=== PATIENT | female | born 1960 | race African-American/Black ===

== ENCOUNTER 2017-11-15 21:52 | Emergency (ER) | payer MEDICARE, OTHER ==
[~2017-11-15 21:52] MED LIST: ALBU6.7H INH; AMLO10TA2 PO; ATOR10TA15 PO; B12; BD P32MI; BIOM30MI; FLUC150T PO; FURO20TA PO; GLUCKIT15; GLUCTES12; INSU1MIS15; LANCETS1 MI1; LANTINJ SQ; LEVO200T4 PO; LEVO50TA4 PO; LISI-515 PO; METF500T PO; METO25TA3 PO; NOVOLOGP2 SQ; PREG300 PO; TRAM50TA PO
[2017-11-15 21:55] VITALS: BP 195/86; PULSE 101; RESP 16; TEMP 98.6; O2SAT 96
[2017-11-15] MEDS ORDERED: SODIUM CHLORIDE 0.9% FLUSH 10 ML FLUSH IVF PRN (22:15)
[2017-11-15] MEDS ORDERED: methylPREDNISolone SOD SUCC 125 MG/2 ML VIAL IV PUSH ONE (22:15)
[2017-11-15 22:16] VITALS: BP 163/93; PULSE 95; RESP 22; O2SAT 98
[2017-11-15 22:18] VITALS: O2SAT 98
--- NOTE | 2017-11-15 22:21 | PD ---
HPI Chief Complaint: Respiratory Symptoms Time Seen by Provider: 22:09 Travel History International Travel<30 days: No Contact w/Intl Traveler<30days: No Traveled to known affect area: No History of Present Illness HPI 57-year-old female with PMH of DM T2, CKD, HTN, morbid obesity presents to the ED for evaluation with 3 day history of cough. States the cough is productive of yellow-green phlegm. She endorses fever of 102 degrees 2 days ago. States that the cough is accompanied by chest tightness, 5/10 central pain is worsened with cough. She endorses intermittent sinus congestion and rhinorrhea. She endorses chronic edema of the lower extremities, no worse today. She denies sore throat, headaches, shortness of breath, abdominal pain, nausea, vomiting, dysuria. She states that she received this years flu vaccine. She is followed by the residents. PFSH Past Medical History Hx Anticoagulant Therapy: No Arthritis: Yes Asthma: Yes Blood Disorders: No Heart Rhythm Problems: No Cancer: No Cardiac Catheterization: Yes Cardiovascular Problems: Yes (HTN, CHF) High Cholesterol: Yes Chemotherapy: No Chest Pain: Yes Congestive Heart Failure: Yes COPD: No Cerebrovascular Accident: No Diabetes: Yes Endocrine: Yes (HYPOTHYROID) Genitourinary: No Hypertension: Yes Immune Disorder: No Musculoskeletal: Yes (OPEN REDUCTION ON L ANKLE) Neurologic: No Psychiatric: No Respiratory: Yes (ASTHMA) Myocardial Infarction: No Radiation Therapy: No Sleep Apnea: No Thyroid Disease: Yes (HYPERTHYROID) Menopausal: Yes : 3 Para: 4 Past Surgical History Abdominal Surgery: Yes (HERNIA) AICD: No Body Medical Devices: VIT D DEF. Cardiac Surgery: Yes (PERICARDIAL WALL OPEN) Section: Yes Coronary Artery Bypass Graft: No Ear Surgery: No Endocrine Surgery: No Eye Surgery: No Genitourinary Surgery: No Gynecologic Surgery: Yes () Hysterectomy: No Joint Replacement: No Oral Surgery: No Pacemaker: No Thoracic Surgery: No Other Surgery: Yes Social History Alcohol Use: No Tobacco Use: No Substance Use: No Allergies-Medications (Allergen,Severity, Reaction): Coded Allergies: acetaminophen (Unverified Allergy, Severe, NAUSEA AND VOMITING, 11/15/17) aspirin (Unverified Allergy, Severe, 11/15/17) diclofenac (Unverified Allergy, Severe, GI UPSET, 11/15/17) etodolac (Unverified Allergy, Severe, GI UPSET, 11/15/17) flurbiprofen (Unverified Allergy, Severe, GI UPSET, 11/15/17) hydrocodone (Unverified Allergy, Severe, NAUSEA AND VOMITING, 11/15/17) ibuprofen (Unverified Allergy, Severe, GI UPSET, 11/15/17) indomethacin (Unverified Allergy, Severe, GI UPSET, 11/15/17) ketoprofen (Unverified Allergy, Severe, GI UPSET, 11/15/17) ketorolac (Unverified Allergy, Severe, GI UPSET, 11/15/17) naproxen (Unverified Allergy, Severe, GI UPSET, 11/15/17) oxaprozin (Unverified Allergy, Severe, GI UPSET, 11/15/17) penicillin G (Unverified Allergy, Severe, 11/15/17) promethazine (Unverified Allergy, Mild, 11/15/17) gabapentin (Unverified Adverse Reaction, Severe, Abdominal pain, 11/15/17) Reported Meds & Prescriptions Reported Meds & Active Scripts Active Metoprolol Tartrate 25 Mg Tab 25 Mg PO BID Levothyroxine (Levothyroxine Sodium) 200 Mcg Tab 200 Mcg PO DAILY Levothyroxine (Levothyroxine Sodium) 50 Mcg Tab 50 Mcg PO DAILY Metformin (Metformin HCl) 500 Mg Tab 500 Mg PO BIDPC Bd Pen Needle/Naila/Ultra 32G X 4 mm (Insulin Pen Needle) 32 Gauge X 5/32" Mis Syringe Use pens for insulin administration up to 5 times per day, as needed for blood sugar control. Novolog Inj (Insulin Aspart) 1,000 Unit/10 Ml Vial 1-9 Units SQ ACHS Take as prescribed. Sharpsafety Sharps Contai (Parenteral Therapy Supplies) 1 Mis Mis Ea .ROUTE DIRECTED Glucocom Test Strips (Blood Glucose Test Strips) 1 Deanna Deanna Ea .ROUTE DIRECTED Lancets 1 Mis Mis Ea .ROUTE DIRECTED Insulin Syringe/U-100/31G X 5/16" 1 ml 31 Gauge X 5/16" Mis Ea .ROUTE DIRECTED Glucocom Blood Glucose Mo W/Device (Device) 1 Kit Kit Kit .ROUTE DIRECTED Fluconazole 150 Mg Tab 150 Mg PO ONCE Atorvastatin (Atorvastatin Calcium) 10 Mg Tab 10 Mg PO HS Lisinopril 20 Mg Tab 20 Mg PO DAILY Take 20mg daily Amlodipine (Amlodipine Besylate) 10 Mg Tab 10 Mg PO DAILY Lantus Solostar Pen Inj (Insulin Glargine) 300 Unit/3 Ml Pen 48 Units SQ HS Take 48 units nightly. Furosemide 20 Mg Tab 40 Mg PO DAILY Take two tabs daily. Lyrica (Pregabalin) 300 Mg Cap 300 Mg PO DAILY Reported [B12] Unknown Strength Unknown Dose Proventil Hfa 6.7 GM Inh (Albuterol Sulfate) 90 Mcg/Act Aer 1 Puff INH Q4H PRN Tramadol (Tramadol HCl) 50 Mg Tab 50 Mg PO Q8H PRN Review of Systems Except as stated in HPI: all other systems reviewed are Neg Physical Exam Narrative GENERAL: Morbidly obese, smells strongly of urine, female in no acute distress. SKIN: Focused skin assessment warm/dry. HEAD: Normocephalic. EYES: No scleral icterus. No injection or drainage. NECK: Supple, trachea midline. No JVD or lymphadenopathy. CARDIOVASCULAR: Regular rate and rhythm without murmurs, gallops, or rubs. RESPIRATORY: Breath sounds tight, equal bilaterally. No accessory muscle use. GASTROINTESTINAL: Abdomen soft, non-tender, nondistended. Active bowel sounds. MUSCULOSKELETAL: No cyanosis. Trace edema to the knees bilaterally. BACK: Nontender without obvious deformity. No CVA tenderness. Data Data Last Documented VS Vital Signs Date Time Temp Pulse Resp B/P (MAP) Pulse Ox O2 Delivery O2 Flow Rate FiO2 11/15/17 22:18 98 Room Air 11/15/17 22:16 95 22 11/15/17 21:55 98.6 Orders Orders Complete Blood Count With Diff (11/15/17 22:14) Comprehensive Metabolic Panel (11/15/17 22:14) B-Type Natriuretic Peptide (11/15/17 22:14) Act Partial Throm Time (Ptt) (11/15/17 22:14) Prothrombin Time / Inr (Pt) (11/15/17 22:14) Ckmb (Isoenzyme) Profile (11/15/17 22:14) Troponin I (11/15/17 22:14) Urinalysis - C+S If Indicated (11/15/17 22:14) Influenzae A/B Antigen (11/15/17 22:14) Iv Access Insert/Monitor (11/15/17 22:14) Electrocardiogram (11/15/17 22:14) Ecg Monitoring (11/15/17 22:14) Oximetry (11/15/17 22:14) Chest, Single Ap (11/15/17 22:14) Sodium Chloride 0.9% Flush (Ns Flush) (11/15/17 22:15) Methylprednisolone So Succ Inj (Solumedr (11/15/17 22:15) Albuterol-Ipratropium Neb (Duoneb Neb) (11/15/17 22:15) CKMB (11/15/17 22:20) CKMB% (11/15/17 22:20) Labs Laboratory Tests Test 11/15/17 22:20 11/15/17 22:57 White Blood Count 13.1 TH/MM3 Red Blood Count 4.55 MIL/MM3 Hemoglobin 12.2 GM/DL Hematocrit 37.0 % Mean Corpuscular Volume 81.3 FL Mean Corpuscular Hemoglobin 26.8 PG Mean Corpuscular Hemoglobin Concent 32.9 % Red Cell Distribution Width 14.7 % Platelet Count 295 TH/MM3 Mean Platelet Volume 8.8 FL Neutrophils (%) (Auto) 56.0 % Lymphocytes (%) (Auto) 32.2 % Monocytes (%) (Auto) 8.0 % Eosinophils (%) (Auto) 3.5 % Basophils (%) (Auto) 0.3 % Neutrophils # (Auto) 7.3 TH/MM3 Lymphocytes # (Auto) 4.2 TH/MM3 Monocytes # (Auto) 1.0 TH/MM3 Eosinophils # (Auto) 0.5 TH/MM3 Basophils # (Auto) 0.0 TH/MM3 CBC Comment DIFF FINAL Differential Comment Prothrombin Time 9.7 SEC Prothromb Time International Ratio 1.0 RATIO Activated Partial Thromboplast Time 23.7 SEC Blood Urea Nitrogen 12 MG/DL Creatinine 1.19 MG/DL Random Glucose 253 MG/DL Total Protein 9.5 GM/DL Albumin 3.3 GM/DL Calcium Level 8.9 MG/DL Alkaline Phosphatase 110 U/L Aspartate Amino Transf (AST/SGOT) 13 U/L Alanine Aminotransferase (ALT/SGPT) 17 U/L Total Bilirubin 0.2 MG/DL Sodium Level 133 MEQ/L Potassium Level 3.6 MEQ/L Chloride Level 100 MEQ/L Carbon Dioxide Level 25.6 MEQ/L Anion Gap 7 MEQ/L Estimat Glomerular Filtration Rate 56 ML/MIN Total Creatine Kinase 272 U/L Creatine Kinase MB 2.0 NG/ML Creatine Kinase MB % 0.7 % Troponin I LESS THAN 0.02 NG/ML MDM Medical Decision Making Medical Screen Exam Complete: Yes Emergency Medical Condition: Yes Differential Diagnosis Viral syndrome versus bronchitis versus pneumonia versus influenza versus CHF versus less likely ACS versus UTI versus other Narrative Course 57-year-old female with PMH of DM T2, CKD, HTN, morbid obesity presents to the ED for evaluation with 3 day history of cough. States the cough is productive of yellow-green phlegm. She endorses fever of 102 degrees 2 days ago. States that the cough is accompanied by chest tightness, 5/10 central pain is worsened with cough. She endorses intermittent sinus congestion and rhinorrhea. She states that she received this years flu vaccine. She is followed by the residents. Vitals reviewed. Physical exam reveals a morbidly obese black female, smelling strongly of urine, in no acute distress. No appreciable M/R/ G. Tight breath sounds bilaterally, no rhonchi or rales noted. Patient was administered IM steroids, DuoNeb 3. Workup ordered and pending. Patient is signed out to Dr. Crum at end of shift. Please see his note for disposition. EKG rate 98, sinus rhythm. PA interval 187, QRS 78, QTC 409. Normal axis. No acute ST changes. Reviewed by Dr. Crum. Jessika Lindo Nov 15, 2017 22:21
[2017-11-15] MEDS: RESP: ALBUTEROL 2.5 MG/IPRATROPIUM 0.5 MG NEB (SCH) INH (22:29)
[2017-11-15 22:32] LABS: AUTOMATED NEUTROPHIL # 7.3 TH/MM3 (1.8-7.7); BASOPHIL % 0.3 % (0.0-2.0); EOSINOPHIL # 0.5 TH/MM3 (0-0.4); EOSINOPHIL % 3.5 % (0.0-4.0); HEMOGLOBIN 12.2 GM/DL (11.6-15.3); LYMPH % 32.2 % (9.0-44.0); LYMPHOCYTE # 4.2 TH/MM3 (1.0-4.8); MEAN CELL VOLUME 81.3 FL (80.0-100.0); MEAN CORPUSCULAR HEMOGLOBIN 26.8 PG (27.0-34.0); MEAN CORPUSCULAR HGB CONC 32.9 % (32.0-36.0); MEAN PLATELET VOLUME 8.8 FL (7.0-11.0); PLATELET COUNT 295 TH/MM3 (150-450); RED BLOOD COUNT 4.55 MIL/MM3 (4.00-5.30); RED CELL DISTRIBUTION WIDTH 14.7 % (11.6-17.2); WHITE BLOOD COUNT 13.1 TH/MM3 (4.0-11.0)
[2017-11-15 22:38] LABS: PROTHROMBIN TIME - PATIENT 9.7 SEC (9.8-11.6)
--- NOTE | 2017-11-15 22:42 | RADRPT ---
EXAM DATE/TIME: 11/15/2017 22:30 [facility] COMPARISON: CHEST SINGLE AP, August 27, 2014, 12:07. INDICATIONS : Short of breath and congestion for 3 days. MEDICAL HISTORY : Hypercholesterolemia. Congestive heart failure. Diabetes mellitus type 2. Cardiomegally. Hypertension . Asthma. Arthritis. SURGICAL HISTORY : section. Hernia repair. Pericardial wall opening. ENCOUNTER: Initial ACUITY: 3 days PAIN SCORE: 0/10 LOCATION: Bilateral chest FINDINGS: A single view of the chest demonstrates the lungs to be symmetrically aerated without evidence of mas s, infiltrate or effusion. The cardiomediastinal contours are stable. Osseous structures are intact . CONCLUSION: 1. Noacute abnormality or significant interval change. Jonatan Kuhn MD on November 15, 2017 at 22:39 Board Certified Radiologist. This report was verified electronically.
[2017-11-15 22:43] LABS: ALBUMIN 3.3 GM/DL (3.4-5.0); ALT (GPT) 17 U/L (10-53); AST (GOT) 13 U/L (15-37); BICARBONATE 25.6 MEQ/L (21.0-32.0); BLOOD UREA NITROGEN 12 MG/DL (7-18); CALCIUM 8.9 MG/DL (8.5-10.1); CHLORIDE 100 MEQ/L (98-107); CREATININE 1.19 MG/DL (0.50-1.00); GLOMERULAR FILTRATION RATE 56 ML/MIN (>89); GLUCOSE,RANDOM 253 MG/DL (74-106); SODIUM (NA) 133 MEQ/L (136-145)
[2017-11-15 22:48] LABS: ALKALINE PHOSPHATASE 110 U/L (45-117); TOTAL BILIRUBIN ADULT 0.2 MG/DL (0.2-1.0); TOTAL PROTEIN 9.5 GM/DL (6.4-8.2); TROPONIN I LESS THAN 0.02 NG/ML (0.02-0.05)
[2017-11-15 23:10] LABS: BILIRUBIN, URINE NEG (NEG); BLOOD, URINE NEG (NEG); GLUCOSE,URINE 300 mg/dL (NEG); HYALINE CAST, URINE 1 /lpf (RARE); KETONE, URINE NEG (NEG); MUCUS URINE FEW /lpf (OCC); NITRITE,URINE NEG (NEG); PH, URINE 5.5 (5.0-8.5); SQUAMOUS EPITHELIAL CELL URINE 1 /hpf (0-5); URINE COLOR YELLOW (YELLW/STRAW); URINE LEUKOCYTE ESTERASE TRACE (NEG)
[2017-11-15] MEDS ORDERED: AZIT250T3 PO (23:56)
[2017-11-15] MEDS ORDERED: VENTAER INH (23:56)
--- NOTE | 2017-11-15 23:56 | PD ---
Data Data Last Documented VS Vital Signs Date Time Temp Pulse Resp B/P (MAP) Pulse Ox O2 Delivery O2 Flow Rate FiO2 11/15/17 22:18 98 Room Air 11/15/17 22:16 95 22 11/15/17 21:55 98.6 Orders Orders Complete Blood Count With Diff (11/15/17 22:14) Comprehensive Metabolic Panel (11/15/17 22:14) B-Type Natriuretic Peptide (11/15/17 22:14) Act Partial Throm Time (Ptt) (11/15/17 22:14) Prothrombin Time / Inr (Pt) (11/15/17 22:14) Ckmb (Isoenzyme) Profile (11/15/17 22:14) Troponin I (11/15/17 22:14) Urinalysis - C+S If Indicated (11/15/17 22:14) Influenzae A/B Antigen (11/15/17 22:14) Iv Access Insert/Monitor (11/15/17 22:14) Electrocardiogram (11/15/17 22:14) Ecg Monitoring (11/15/17 22:14) Oximetry (11/15/17 22:14) Chest, Single Ap (11/15/17 22:14) Sodium Chloride 0.9% Flush (Ns Flush) (11/15/17 22:15) Methylprednisolone So Succ Inj (Solumedr (11/15/17 22:15) Albuterol-Ipratropium Neb (Duoneb Neb) (11/15/17 22:15) CKMB (11/15/17 22:20) CKMB% (11/15/17 22:20) Labs Laboratory Tests Test 11/15/17 22:20 11/15/17 22:57 White Blood Count 13.1 TH/MM3 Red Blood Count 4.55 MIL/MM3 Hemoglobin 12.2 GM/DL Hematocrit 37.0 % Mean Corpuscular Volume 81.3 FL Mean Corpuscular Hemoglobin 26.8 PG Mean Corpuscular Hemoglobin Concent 32.9 % Red Cell Distribution Width 14.7 % Platelet Count 295 TH/MM3 Mean Platelet Volume 8.8 FL Neutrophils (%) (Auto) 56.0 % Lymphocytes (%) (Auto) 32.2 % Monocytes (%) (Auto) 8.0 % Eosinophils (%) (Auto) 3.5 % Basophils (%) (Auto) 0.3 % Neutrophils # (Auto) 7.3 TH/MM3 Lymphocytes # (Auto) 4.2 TH/MM3 Monocytes # (Auto) 1.0 TH/MM3 Eosinophils # (Auto) 0.5 TH/MM3 Basophils # (Auto) 0.0 TH/MM3 CBC Comment DIFF FINAL Differential Comment Prothrombin Time 9.7 SEC Prothromb Time International Ratio 1.0 RATIO Activated Partial Thromboplast Time 23.7 SEC Blood Urea Nitrogen 12 MG/DL Creatinine 1.19 MG/DL Random Glucose 253 MG/DL Total Protein 9.5 GM/DL Albumin 3.3 GM/DL Calcium Level 8.9 MG/DL Alkaline Phosphatase 110 U/L Aspartate Amino Transf (AST/SGOT) 13 U/L Alanine Aminotransferase (ALT/SGPT) 17 U/L Total Bilirubin 0.2 MG/DL Sodium Level 133 MEQ/L Potassium Level 3.6 MEQ/L Chloride Level 100 MEQ/L Carbon Dioxide Level 25.6 MEQ/L Anion Gap 7 MEQ/L Estimat Glomerular Filtration Rate 56 ML/MIN Total Creatine Kinase 272 U/L Creatine Kinase MB 2.0 NG/ML Creatine Kinase MB % 0.7 % Troponin I LESS THAN 0.02 NG/ML B-Type Natriuretic Peptide 13 PG/ML Urine Color YELLOW Urine Turbidity CLEAR Urine pH 5.5 Urine Specific Gould 1.023 Urine Protein 30 mg/dL Urine Glucose (UA) 300 mg/dL Urine Ketones NEG mg/dL Urine Occult Blood NEG Urine Nitrite NEG Urine Bilirubin NEG Urine Urobilinogen 2.0 MG/DL Urine Leukocyte Esterase TRACE Urine RBC LESS THAN 1 /hpf Urine WBC 1 /hpf Urine Squamous Epithelial Cells 1 /hpf Urine Hyaline Casts 1 /lpf Urine Mucus FEW /lpf Microscopic Urinalysis Comment CULT NOT INDICATED MDM Supervised Visit with ANITHA: Yes Narrative Course The history, exam, and medical decision-making in the associated mid-level provider note were completed with my assistance. I reviewed and agree with the findings presented. I attest that I had a [id number] encounter with the patient on the same day, and personally performed and documented my assessment and findings in the medical record. *My assessment and Findings: 57 year-old woman, diabetes CAD hypertension morbid obesity, 3 days of cough fever chills some chest pain. Splint for bronchitis. Chest x-ray shows no pneumonia. Flu was negative. Recommend supportive treatment. Studies show: CBC mild leukocytosis. CMP unremarkable. Glucose 253. Troponin negative. BNP normal. Total protein is a little bit elevated with a low albumin. Influenza negative Chest x-ray negative Diagnosis Primary Impression: Acute bronchitis Additional Instruction: Use albuterol inhaler as prescribed. Take azithromycin as prescribed. Follow-up with her primary doctor in next 2-4 days. Return to the emergency department for any new or worsening symptoms. Med/Other Pt SpecificInfo: Prescription(s) given Scripts Albuterol 18 GM Inh (Ventolin Hfa 18 GM Inh) 90 Mcg/Act Aer 2 PUFF INH Q4-6H Y for SHORTNESS OF BREATH, #1 INHALER 0 Refills Prov: Rogelio Crum MD 11/15/17 Azithromycin (Azithromycin) 250 Mg Tab 250 MG PO DIRECTED for Infection, #6 TAB 0 Refills Take 2 tabs (500 mg) on day 1 then 1 tab daily x 4 days. Prov: Rogelio Crum MD 11/15/17 Disposition: 01 DISCHARGE HOME Condition: Stable Rogelio Crum MD Nov 15, 2017 23:56
[2017-11-16] MEDS ORDERED: NOVOLOGP2 SQ (14:39)
[2017-11-16] MEDS ORDERED: LANTINJ SQ (14:39)
[2017-11-16] MEDS ORDERED: PREG300 PO (14:39)
--- NOTE | 2017-11-16 22:48 | EKG ---
Date Performed: 11/15/2017 Time Performed: 22:31:26 PTAGE: 57 years EKG: Sinus rhythm NONSPECIFIC T-WAVE ABNORMALITY BORDERLINE ECG PREVIOUS TRACING : 08/27/2014 18.36 Compared to prior tracing no significant change DOCTOR: David Durant Interpretating Date/Time 11/16/2017 22:46:48
== END 2017-11-16 00:25 | disposition home or self-care (01) ==
LOC: NEPC 21:52
DX: J20.9 Acute bronchitis, unspecified (principal); E66.01 Morbid (severe) obesity due to excess calories; E78.00 Pure hypercholesterolemia, unspecified; I13.0 Hypertensive heart and chronic kidney disease with heart failure and stage 1 through stage 4 chronic kidney disease, or unspecified chronic kidney disease; E11.22 Type 2 diabetes mellitus with diabetic chronic kidney disease; N18.9 Chronic kidney disease, unspecified; I50.9 Heart failure, unspecified; J45.909 Unspecified asthma, uncomplicated; R94.31 Abnormal electrocardiogram [ECG] [EKG]; Z79.4 Long term (current) use of insulin
CPT/HCPCS: 71010; 80053; 81001; 82550; 82552; 83880; 84484; 85025; 85610; 85730; 87804; 93005; 94640; 94664; 96374; 99285; J2930

== ENCOUNTER 2017-12-11 11:29 | Emergency (ER) | payer MEDICARE | END 2017-12-11 13:43 | disposition home or self-care (01) | LOC: NEPK 11:29 | DX: L08.9 Local infection of the skin and subcutaneous tissue, unspecified (principal); I11.0 Hypertensive heart disease with heart failure; I50.9 Heart failure, unspecified; E78.00 Pure hypercholesterolemia, unspecified; E11.9 Type 2 diabetes mellitus without complications; Z79.4 Long term (current) use of insulin | CPT/HCPCS: 73130; 99284 ==

== ENCOUNTER 2018-05-29 18:42 | Observation (INO) ==
--- NOTE | 2018-05-29 22:41 | XR ---
EXAM DATE: 05/29/2018 10:37 PM EDT AGE/SEX: 57 years / Female INDICATIONS: Left sided chest pain and shortness of breath. CLINICAL DATA: This is the patient's initial encounter. Patient reports that signs and symptoms have been present for 1 day and indicates a pain score of 6/10. MEDICAL/SURGICAL HISTORY: Chronic obstructive pulmonary disease. Congestive heart failure. Di abetes mellitus type II. Hypertension. Asthma. None. COMPARISON: [facility] [place] CHEST SINGLE AP, 11/15/2017. . FINDINGS: A single AP view of the chest demonstrates the lungs to be symmetrically aerated without evidence of mass, infiltrate or effusion. The cardiomediastinal contours are unremarkable. Osseous structures a re intact. CONCLUSION: No evidence of acute cardiopulmonary disease. Electronically signed by: Homer Yo MD 05/29/2018 10:39 PM EDT
[2018-05-29 22:47] LABS: Hematocrit 33.8 % (35.0-46.0); Hemoglobin 11.2 gm/dL (11.6-15.3); Mean Corpuscular HGB Conc 33.1 % (32.0-36.0); Mean Corpuscular Volume 81.7 fL (80.0-100.0); Mean Platelet Volume 8.9 fL (7.0-11.0); Platelet Count 284 th/mm3 (150-450); Red Blood Count 4.14 mil/mm3 (4.00-5.30); Red Cell Distribution Width 14.2 % (11.6-17.2); White Blood Count 12.5 th/mm3 (4.0-11.0)
[2018-05-29 22:53] LABS: Activated Partial Thrombo Time 27.5 sec (24.3-30.1); INR 1.2 Ratio; Prothrombin Time 12.4 sec (9.8-11.6)
[2018-05-29 22:59] LABS: Anion Gap 11 meq/L (5-15); Aspartate Aminotransferase 10 U/L (15-37); Blood Urea Nitrogen 17 mg/dL (7-18); Calcium 9.2 mg/dL (8.5-10.1); Carbon Dioxide 23.3 meq/L (21.0-32.0); Chloride 102 meq/L (98-107); Glomerular Filtration Rate 46 mL/min (>89); Glucose,Random 248 mg/dL (74-106); Potassium 3.8 meq/L (3.5-5.1); Sodium 136 meq/L (136-145)
[2018-05-29 23:00] LABS: Alanine Aminotransferase 16 U/L (10-53)
[2018-05-29 23:03] LABS: Alkaline Phosphatase 98 U/L (45-117); Creatine Kinase 189 U/L (26-192); Total Protein 8.7 g/dL (6.4-8.2)
[2018-05-29 23:15] LABS: Lymphocytes 42 % (9-44); Monocytes 4 % (0-8)
[2018-05-29 23:16] LABS: Creatine Kinase MB 1.5 ng/mL (0.5-3.6); Platelet Estimate Normal (Normal); Platelet Morphology Normal (Normal); RBC Morphology Normal (Normal)
--- NOTE | 2018-05-29 23:44 | ED ---
HPI General Chief complaint: Chest Pain Stated complaint: sob Time Seen by Provider: 05/29/18 21:38 Source: patient Mode of arrival: ambulatory Limitations: no limitations History of Present Illness HPI narrative: Patient is a 57-year-old female who comes in complaining of left- sided chest pain that radiates up to her jaw. She says this is been going on for the past 4 days. She says it comes and goes randomly throughout the day. She says it is associated with some shortness of breath. She says she has had some nausea with it, but no vomiting. She denies cough or cold symptoms. She has not taken anything for her symptoms. Severity is mild to moderate. Treatments prior to arrival: none Related Data Home Medications Medication Instructions Recorded Confirmed amlodipine [Norvasc] 10 mg PO DAILY 05/29/18 05/29/18 atorvastatin 20 mg PO DAILY 05/29/18 05/29/18 insulin NPH and regular human See Label Instructions .ROUTE 05/29/18 05/29/18 [Novolin 70/30 U-100 Insulin] .COMPLEX levothyroxine 200 mcg PO DAILY 05/29/18 05/29/18 lisinopril 20 mg PO DAILY 05/29/18 05/29/18 metoprolol succinate 25 mg PO DAILY 05/29/18 05/29/18 Allergies Allergy/AdvReac Type Severity Reaction Status Date / Time acetaminophen Allergy Severe NAUSEA AND Unverified 11/16/17 14:22 VOMITING aspirin Allergy Severe Unverified 11/16/17 14:22 diclofenac Allergy Severe GI UPSET Unverified 11/16/17 14:22 etodolac Allergy Severe GI UPSET Unverified 11/16/17 14:22 flurbiprofen Allergy Severe GI UPSET Unverified 11/16/17 14:22 hydrocodone Allergy Severe NAUSEA AND Unverified 11/16/17 14:22 VOMITING ibuprofen Allergy Severe GI UPSET Unverified 11/16/17 14:22 indomethacin Allergy Severe GI UPSET Unverified 11/16/17 14:22 ketoprofen Allergy Severe GI UPSET Unverified 11/16/17 14:22 ketorolac Allergy Severe GI UPSET Unverified 11/16/17 14:22 naproxen Allergy Severe GI UPSET Unverified 11/16/17 14:22 oxaprozin Allergy Severe GI UPSET Unverified 11/16/17 14:22 penicillin G Allergy Severe Unverified 11/16/17 14:22 promethazine Allergy Mild Unverified 11/16/17 14:22 gabapentin AdvReac Severe Abdominal Unverified 11/16/17 14:22 pain Review of Systems Except as stated in HPI: all other systems reviewed are negative Constitutional Denies chills and Denies fever(s) ENT Denies dizziness Cardiovascular Reports chest pain and Denies edema Respiratory Reports dyspnea Gastrointestinal Denies abdominal pain, Reports nausea and Denies vomiting Musculoskeletal Denies myalgias and Denies arthralgias Integumentary/Breasts Denies rash and Denies skin ulcer Neurologic Denies dizziness and Denies headache(s) [facility] Medical History Medical History Anemia (Acute) CHF (congestive heart failure) (Acute) Diabetes (Acute) Hypercholesteremia (Acute) Hypertension (Acute) Hypothyroid (Acute) Surgical History Surgical History History of hernia repair (Acute) Social History Social History Substance History: No History of Abuse Second Hand Smoke Exposure: No Smoking Status: Never smoker How Often Do You Have a Drink Containing Alcohol: Monthly or less Recent Travel in [facility] within the Last 8 Weeks: No Recent Out of Country Travel within the Last 8 Weeks: No Immunization History Tetanus Immunization: Unsure Hx Influenza Vaccine This Season: No Exam Narrative Exam Narrative: GENERAL: Awake and alert, in no acute distress. SKIN: Focused skin assessment warm/dry. No rash or signs of infection. HEAD: Atraumatic. Normocephalic. EYES: Pupils equal and round. No scleral icterus. No injection or drainage. ENT: Mucous membranes pink and moist. NECK: Trachea midline. No JVD. CARDIOVASCULAR: Regular rate and rhythm. No murmur appreciated. RESPIRATORY: No accessory muscle use. Clear to auscultation. Breath sounds equal bilaterally. GASTROINTESTINAL: Abdomen soft, non-tender, nondistended. MUSCULOSKELETAL: No obvious deformities. No clubbing. No cyanosis. No edema. NEUROLOGICAL: Awake and alert. No obvious cranial nerve deficits. Motor grossly within normal limits. Normal speech. PSYCHIATRIC: Appropriate mood and affect; insight and judgment normal. Course Hospital Course: IV established, labs sent. Patient connected to air sampling and monitoring. She is allergic to aspirin, so this was not given. Chest x-ray ordered. Reevaluation(s) Reevaluation #1: Patient resting comfortably, no acute distress. Time: 23:43 Initial Documented Vital Signs Temperature 98.9 F 05/29/18 18:52 Pulse Rate 101 H 05/29/18 18:52 Respiratory Rate 20 05/29/18 18:52 Blood Pressure 195/119 H 05/29/18 18:52 Pulse Oximetry 98 05/29/18 18:52 Last Documented Vital Signs Temperature 98.9 F 05/29/18 18:52 Pulse Rate 87 05/29/18 21:51 Respiratory Rate 18 05/29/18 21:51 Blood Pressure 177/124 H 05/29/18 21:51 Pulse Oximetry 99 05/29/18 21:51 Medical Decision Making MDM Narrative Medical decision making narrative: Patient is a 57-year-old female comes in complaining of chest pain. Exam shows no acute abnormalities. IV established, labs sent, patient connected to the air sampling and monitoring. Labs show no acute abnormalities. Chest x-ray shows no acute abnormalities. Based on patient's age and risk factors, she was placed in chest pain center for further management. Differential Diagnosis Differential Diagnosis: ACS versus NSTEMI versus STEMI Medical Records Medical records reviewed: Yes I reviewed the patient's medical records. Lab Data Lab results reviewed: Yes I reviewed the patient's lab results. Result diagrams: 05/29/18 22:35 05/29/18 22:35 Lab Results 05/29/18 05/29/18 05/29/18 Range/Units 22:35 22:35 22:35 WBC 12.5 H (4.0-11.0) th/mm3 RBC 4.14 (4.00-5.30) mil/mm3 Hgb 11.2 L (11.6-15.3) gm/dL Hct 33.8 L (35.0-46.0) % MCV 81.7 (80.0-100.0) fL MCH 27.0 (27.0-34.0) pg MCHC 33.1 (32.0-36.0) % RDW 14.2 (11.6-17.2) % Plt Count 284 (150-450) th/mm3 MPV 8.9 (7.0-11.0) fL Prelim Diff (Auto) Slide review pending WBC Differential Manual diff final Seg Neuts % (Manual) 54 (16-70) % Lymphocytes % (Manual) 42 (9-44) % Monocytes % (Manual) 4 (0-8) % Abs Neuts (Manual) 6.8 (1.8-7.7) th/mm3 Differential Comment . Platelet Estimate Normal (Normal) Platelet Morphology Normal (Normal) RBC Morphology Normal (Normal) PT 12.4 H (9.8-11.6) sec INR 1.2 Ratio APTT 27.5 (24.3-30.1) sec Sodium 136 (136-145) meq/L Potassium 3.8 (3.5-5.1) meq/L Chloride 102 (98-107) meq/L Carbon Dioxide 23.3 (21.0-32.0) meq/L Anion Gap 11 (5-15) meq/L BUN 17 (7-18) mg/dL Creatinine 1.42 H (0.50-1.00) mg/dL Estimated GFR 46 L (>89) mL/min Random Glucose 248 H (74-106) mg/dL Calcium 9.2 (8.5-10.1) mg/dL Total Bilirubin 0.1 L (0.2-1.0) mg/dL AST 10 L (15-37) U/L ALT 16 (10-53) U/L Alkaline Phosphatase 98 (45-117) U/L Total Creatine Kinase 189 (26-192) U/L CK-MB (CK-2) 1.5 (0.5-3.6) ng/mL Troponin I Less than 0.02 L (0.02-0.05) ng/mL B-Natriuretic Peptide (0-100) pg/mL Total Protein 8.7 H (6.4-8.2) g/dL Albumin 3.0 L (3.4-5.0) g/dL 05/29/18 Range/Units 22:35 WBC (4.0-11.0) th/mm3 RBC (4.00-5.30) mil/mm3 Hgb (11.6-15.3) gm/dL Hct (35.0-46.0) % MCV (80.0-100.0) fL MCH (27.0-34.0) pg MCHC (32.0-36.0) % RDW (11.6-17.2) % Plt Count (150-450) th/mm3 MPV (7.0-11.0) fL Prelim Diff (Auto) WBC Differential Seg Neuts % (Manual) (16-70) % Lymphocytes % (Manual) (9-44) % Monocytes % (Manual) (0-8) % Abs Neuts (Manual) (1.8-7.7) th/mm3 Differential Comment Platelet Estimate (Normal) Platelet Morphology (Normal) RBC Morphology (Normal) PT (9.8-11.6) sec INR Ratio APTT (24.3-30.1) sec Sodium (136-145) meq/L Potassium (3.5-5.1) meq/L Chloride (98-107) meq/L Carbon Dioxide (21.0-32.0) meq/L Anion Gap (5-15) meq/L BUN (7-18) mg/dL Creatinine (0.50-1.00) mg/dL Estimated GFR (>89) mL/min Random Glucose (74-106) mg/dL Calcium (8.5-10.1) mg/dL Total Bilirubin (0.2-1.0) mg/dL AST (15-37) U/L ALT (10-53) U/L Alkaline Phosphatase (45-117) U/L Total Creatine Kinase (26-192) U/L CK-MB (CK-2) (0.5-3.6) ng/mL Troponin I (0.02-0.05) ng/mL B-Natriuretic Peptide 10 (0-100) pg/mL Total Protein (6.4-8.2) g/dL Albumin (3.4-5.0) g/dL Imaging Data Radiologist's impression: ITS Impressions Chest X-Ray 05/29/18 21:51 CONCLUSION: No evidence of acute cardiopulmonary disease. ECG Data EKG Prior to Arrival: No Attestation: I personally reviewed and interpreted this ECG as follows: Interpretation: ECG shows normal sinus rhythm at a rate of 93, no ST elevation or depression, normal intervals Discharge Plan Discharge Disposition Patient Disposition: 30 Still Patient Discharge Details Diagnosis: Atypical chest pain Physicians Team ED Provider: Soledad Clark Primary Care Provider: Tammy Kee Rxs /Orders / Referrals /Forms Prescriptions: No Action atorvastatin 20 mg Tablet 20 mg PO DAILY RF: 0 lisinopril 20 mg Tablet 20 mg PO DAILY RF: 0 insulin NPH and regular human [Novolin 70/30 U-100 Insulin] 100 unit/mL (70-30 ) Suspension See Label Instructions .ROUTE .COMPLEX RF: 0 amlodipine [Norvasc] 10 mg Tablet 10 mg PO DAILY RF: 0 levothyroxine 200 mcg Tablet 200 mcg PO DAILY RF: 0 metoprolol succinate 25 mg Tablet Extended Release 24 Hr 25 mg PO DAILY RF: 0 Discharge Instructions Patient Printed Instructions: Chest Pain (ED) Discharge Interventions Interventions: Vital Signs Last Done: 05/29/18 21:36 Status ED Status: With Doctor
[2018-05-30 02:43] LABS: Creatine Kinase 175 U/L (26-192)
[2018-05-30 06:21] LABS: Creatine Kinase 194 U/L (26-192)
[2018-05-30 06:37] LABS: CKMB Percent 0.6 % (0.0-4.0); Creatine Kinase MB 1.1 ng/mL (0.5-3.6)
--- NOTE | 2018-05-30 08:45 | ECG ---
Date Performed: 05/30/2018 Time Performed: 05:15:57 PTAGE: 57 years EKG: Sinus rhythm POSSIBLE LEFT ATRIAL ENLARGEMENT BORDERLINE ECG PREVIOUS TRACING : 05/30/2018 01.52 Since previous tracing, no significant change noted DOCTOR: Dexter Kee Interpretating Date/Time 05/30/2018 08:45:02
--- NOTE | 2018-05-30 08:45 | ECG ---
Date Performed: 05/30/2018 Time Performed: 01:52:58 PTAGE: 57 years EKG: Sinus rhythm NORMAL ECG PREVIOUS TRACING : 05/29/2018 21.26 Since previous tracing, no significant change noted DOCTOR: Dexter Kee Interpretating Date/Time 05/30/2018 08:45:20
--- NOTE | 2018-05-30 08:48 | ECG ---
Date Performed: 05/29/2018 Time Performed: 21:26:27 PTAGE: 57 years EKG: Sinus rhythm POSSIBLE LEFT ATRIAL ENLARGEMENT BORDERLINE ECG PREVIOUS TRACING : 11/15/2017 22.31 Since previous tracing, no significant change noted DOCTOR: Dexter Kee Interpretating Date/Time 05/30/2018 08:47:08
[2018-05-30] MEDS ORDERED: amLODIPine 10 MG Tablet PO SCH (09:00)
[2018-05-30] MEDS ORDERED: Lisinopril 20 MG Tablet PO SCH (09:00)
[2018-05-30] MEDS ORDERED: Dextrose 50% in Water 50 ML Vial IV.PUSH PRN (09:10)
--- NOTE | 2018-05-30 10:04 | P.HPCA ---
History of Present Illness Primary Care Physician: Tammy Kee MD, R2 Chief Complaint: Chest pain History of Present Illness: This is a 57-year-old female history of hypertension, hyperlipidemia, diabetes, past history also of pericardial effusion with a tap couple years ago with complaint of left-sided chest discomfort intermittently there for 5 days. States that it can be sensations in sitting on the chest, sharp pain, or squeezing pain. It will last for 15-20 minutes. She times has been short of breath, nauseous, and diaphoretic. Found nothing to help the discomfort. Really found nothing to worsen it. Found nothing in particular bring on the discomfort. States she follows Dr. Mathew of cardiology and last saw him may be December or January of this past year. Cannot recall last stress test. Upon reviewing records she had a cardiac catheterization 2006 that did not reveal obstructive disease. Currently denies chest discomfort. Non-smoker. There is family history of heart disease. She has had hernia repair. Heart catheterization without intervention in 2006. - Diagnosis (1) Chest pain (2) Hypertension (3) Hyperlipidemia (4) Diabetes (5) Obesity Inpatient Certification: I certify that the inpatient services were ordered in accordance with Medicare regulations governing the order. This includes certification that hospital inpatient services are reasonable and necessary and in the case of services not specified as inpatient-only under 42 CFR 419.22(n), that they are appropriately provided as inpatient services in accordance to with the 2-midnight benchmark under 43 CFR 412.3(e) Review of Systems General: Patient denies fevers, chills, and recent travel. HEENT: Patient denies headache, sore throat, difficulty swallowing. Cardiovascular: Has the chest discomfort as mentioned above. Denies sensation of heart beating rapidly or irregularly. No syncope. Intermittent diaphoresis. Respiratory: She has been short of breath at times. Denies inspirational chest discomfort. Denies coughing wheezing or hemoptysis. GI: She was nauseous a couple times. Patient denies vomiting, diarrhea, abdominal pain, bloody stools. Musculoskeletal: Chronic intermittent edema in lower extremities which she states she takes Lasix when it occurs. Patient denies joint pain or edema. Denies calf pain. Neurovascular: Patient denies numbness, tingling, weakness in extremities. Denies headache. Endocrine: Denies polyuria and polydipsia. Hematologic: Denies easy bruising. Skin: Denies rash or itching. PMFSH - History History Provided By: Patient - Medical History Medical History: Medical History (Last Reviewed 05/29/18 @ 23:41 by Soledad Clark MD) Anemia CHF (congestive heart failure) Diabetes Hypercholesteremia Hypertension Hypothyroid - Surgical History Surgical History: Surgical History (Last Reviewed 05/29/18 @ 23:41 by Soledad Clark MD) History of hernia repair - Tobacco History Second Hand Smoke Exposure: No Smoking Status: Never smoker - Alcohol History How Often Do You Have a Drink Containing Alcohol: Monthly or less - Substance Use History Substance History: No History of Abuse - Travel History Recent Travel in the [place] Within the Last 8 Weeks: No Recent Travel Out of the Country Within the Last 8 Weeks: No - Immunization History Tetanus Immunization: Unsure Hx Influenza Vaccine This Season: No Medications and Allergies Active Medications: Active Medications Albuterol (Duoneb Neb (Prn)) 1 ampul NEB Q4HR NEB PRN PRN Reason: SHORTNESS OF BREATH/WHEEZING Amlodipine Besylate (Norvasc) 10 mg PO DAILY [facility] Atorvastatin Calcium (Lipitor) 20 mg PO DAILY [facility] Dextrose (D50w Vial) 50 ml IV.PUSH UNSCH PRN PRN Reason: PER HYPOGLYCEMIA PROTOCOL Glucagon (Glucagon Inj) 1 mg OTHER UNSCH PRN PRN Reason: for Hypoglycemia Protocol Insulin Human Regular (Novolin R Supplemental Scale) 0 units SQ ACHS NAYANA; Protocol Levothyroxine Sodium (Synthroid) 200 mcg PO DAILY@0600 [facility] Lisinopril (Prinivil) 20 mg PO DAILY [facility] Sodium Chloride (Ns Flush) 2 ml IV.FLUSH PRN PRN PRN Reason: FLUSH AFTER USING IV ACCESS Sodium Chloride (Ns Flush) 2 ml IV.FLUSH BID [facility] Allergies Allergy/AdvReac Type Severity Reaction Status Date / Time acetaminophen Allergy Severe NAUSEA AND Verified 05/30/18 07:01 VOMITING aspirin Allergy Severe Gastrointestinal Verified 05/30/18 07:01 Upset diclofenac Allergy Severe GI UPSET Verified 05/30/18 07:01 etodolac Allergy Severe GI UPSET Verified 05/30/18 07:01 flurbiprofen Allergy Severe GI UPSET Verified 05/30/18 07:01 hydrocodone Allergy Severe NAUSEA AND Verified 05/30/18 07:01 VOMITING ibuprofen Allergy Severe GI UPSET Verified 05/30/18 07:01 indomethacin Allergy Severe GI UPSET Verified 05/30/18 07:01 ketoprofen Allergy Severe GI UPSET Verified 05/30/18 07:01 ketorolac Allergy Severe GI UPSET Verified 05/30/18 07:01 naproxen Allergy Severe GI UPSET Verified 05/30/18 07:21 oxaprozin Allergy Severe GI UPSET Verified 05/30/18 07:21 penicillin G Allergy Severe Gastrointestinal Verified 05/30/18 07:01 Upset promethazine Allergy Mild Gastrointestinal Verified 05/30/18 07:01 Upset gabapentin AdvReac Severe Abdominal Verified 05/30/18 07:21 pain Home Medications Medication Instructions Recorded Confirmed Type amlodipine [Norvasc] 10 mg PO DAILY 05/29/18 05/29/18 History atorvastatin 20 mg PO DAILY 05/29/18 05/29/18 History insulin NPH and regular human See Label Instructions .ROUTE 05/29/18 05/29/18 History [Novolin 70/30 U-100 Insulin] .COMPLEX levothyroxine 200 mcg PO DAILY 05/29/18 05/29/18 History lisinopril 20 mg PO DAILY 05/29/18 05/29/18 History metoprolol succinate 25 mg PO DAILY 05/29/18 05/29/18 History Exam Vital signs: Vital Signs 05/29/18 18:52 05/29/18 21:36 05/29/18 21:51 Temperature 98.9 F Pulse Rate 101 H 87 87 Respiratory Rate 20 18 18 Blood Pressure 195/119 H 176/87 H 177/124 H Pulse Oximetry 98 99 99 05/30/18 01:00 05/30/18 02:00 05/30/18 03:00 Temperature Pulse Rate 86 80 78 Respiratory Rate 24 24 26 H Blood Pressure 159/65 H 162/70 H 133/65 Pulse Oximetry 100 99 100 05/30/18 04:00 05/30/18 08:25 Temperature Pulse Rate 82 84 Respiratory Rate 20 20 Blood Pressure 121/65 142/65 H Pulse Oximetry 98 Intake & Output 05/29/18 05/30/18 05/30/18 18:59 06:59 18:59 Weight 129.727 kg Narrative: GENERAL: This is a well-nourished, well-developed patient, in no apparent distress. Patient is obese at 130 kg. Patient speaks in clear complete sentences. Patient is pleasant. HEENT: Head is atraumatic and normocephalic. Neck is supple without lymphadenopathy and trachea is midline. No JVD or carotid bruits. CARDIOVASCULAR: Regular rate and rhythm without murmurs, gallops, or rubs. RESPIRATORY: Clear to auscultation. Breath sounds equal bilaterally. No wheezes , rales, or rhonchi. Chest wall is nontender. No use of accessory muscles. GASTROINTESTINAL: Abdomen is nontender, nondistended. Abdomen soft. No obvious pulsatile mass or bruit. No CVA tenderness. Strong femoral pulses bilaterally. Normal bowel sounds in all quadrants. MUSCULOSKELETAL: Patient is moving upper and lower extremities freely. Trace edema bilateral lower extremities. No calf tenderness, no Homans sign. Strong pulses in upper and lower extremities. NEUROLOGICAL: Patient is alert and oriented. Cranial nerves 2-12 are grossly intact. No focal deficits and speech is clear. SKIN: No rash and turgor is normal. Results 05/29/18 22:35 05/29/18 22:35 Cardiac Enzymes 05/29/18 05/29/18 05/30/18 Range/Units 22:35 22:35 02:00 AST 10 L (15-37) U/L CK-MB (CK-2) 1.5 (0.5-3.6) ng/mL Troponin I Less than 0.02 L Less than 0.02 L (0.02-0.05) ng/mL B-Natriuretic Peptide 10 (0-100) pg/mL 05/30/18 Range/Units 05:46 AST (15-37) U/L CK-MB (CK-2) 1.1 (0.5-3.6) ng/mL Troponin I Less than 0.02 L (0.02-0.05) ng/mL B-Natriuretic Peptide (0-100) pg/mL Coagulation 05/29/18 05/29/18 Range/Units 22:35 22:35 PT 12.4 H (9.8-11.6) sec APTT 27.5 (24.3-30.1) sec B-Natriuretic Peptide 10 (0-100) pg/mL CBC 05/29/18 Range/Units 22:35 WBC 12.5 H (4.0-11.0) th/mm3 RBC 4.14 (4.00-5.30) mil/mm3 Hgb 11.2 L (11.6-15.3) gm/dL Hct 33.8 L (35.0-46.0) % Plt Count 284 (150-450) th/mm3 Comprehensive Metabolic Panel 05/29/18 Range/Units 22:35 Sodium 136 (136-145) meq/L Potassium 3.8 (3.5-5.1) meq/L Chloride 102 (98-107) meq/L Carbon Dioxide 23.3 (21.0-32.0) meq/L BUN 17 (7-18) mg/dL Creatinine 1.42 H (0.50-1.00) mg/dL Calcium 9.2 (8.5-10.1) mg/dL AST 10 L (15-37) U/L ALT 16 (10-53) U/L Alkaline Phosphatase 98 (45-117) U/L Total Protein 8.7 H (6.4-8.2) g/dL Albumin 3.0 L (3.4-5.0) g/dL Intake and Output 05/29/18 05/30/18 05/30/18 22:59 06:59 14:59 Other: Weight 129.727 kg EKG interpretations - EKG EKG shows: sinus rhythm (EKGs have been sinus rhythm without significant ST segment depressions or elevations.) Caprini VTE Risk Assessment Caprini VTE Risk Assessment: No/Low Risk (score <= 1) Caprini Risk Assessment Model: Point Value = 1 Point Value = 2 Point Value = 3 Point Value = 5 Age 41-60 Minor surgery BMI > 25 kg/m2 Swollen legs Varicose veins or History of unexplained or recurrent spontaneous Oral contraceptives or hormone replacement Sepsis (< 1 month) Serious lung disease, including pneumonia (< 1 month) Abnormal pulmonary function Acute myocardial infarction Congestive heart failure (< 1 month) History of inflammatory bowel disease Medical patient at bed rest Age 61-74 Arthroscopic surgery Major open surgery (> 45 min) Laparoscopic surgery (> 45 min) Malignancy Confined to bed (> 72 hours) Immobilizing plaster cast Central venous access Age >= 75 History of VTE Family history of VTE Factor V Leiden Prothrombin [id number] Lupus anticoagulant Anticardiolipin antibodies Elevated serum homocysteine Heparin-induced thrombocytopenia Other congenital or acquired thrombophilia Stroke (< 1 month) Elective arthroplasty Hip, pelvis, or leg fracture Acute spinal cord injury (< 1 month) Prophylaxis Regimen: Total Risk Factor Score Risk Level Prophylaxis Regimen 0-1 Low Early ambulation 2 Moderate Order ONE of the following: *Sequential Compression Device (SCD) *Heparin 5000 units SQ BID 3-4 Higher Order ONE of the following medications: *Heparin 5000 units SQ TID *Enoxaparin/Lovenox 40 mg SQ daily (WT < 150 kg, CrCl > 30 mL/min) *Enoxaparin/Lovenox 30 mg SQ daily (WT < 150 kg, CrCl > 10-29 mL/min) *Enoxaparin/Lovenox 30 mg SQ BID (WT < 150 kg, CrCl > 30 mL/min) AND/OR *Sequential Compression Device (SCD) 5 or more Highest Order ONE of the following medications: *Heparin 5000 units SQ TID (Preferred with Epidurals) *Enoxaparin/Lovenox 40 mg SQ daily (WT < 150 kg, CrCl > 30 mL/min) *Enoxaparin/Lovenox 30 mg SQ daily (WT < 150 kg, CrCl > 10-29 mL/min) *Enoxaparin/Lovenox 30 mg SQ BID (WT < 150 kg, CrCl > 30 mL/min) AND *Sequential Compression Device (SCD) Assessment and Plan - Assessment (1) Chest pain Code(s): R07.9 - Chest pain, unspecified Status: Acute (2) Hypertension Code(s): I10 - Essential (primary) hypertension Status: Acute (3) Hyperlipidemia Code(s): E78.5 - Hyperlipidemia, unspecified Status: Acute (4) Diabetes Code(s): E11.9 - Type 2 diabetes mellitus without complications Status: Acute (5) Obesity Code(s): E66.9 - Obesity, unspecified Status: Acute - Plan * Chest pain: Patient has had serial cardiac enzymes and EKGs for ruling out purposes. She has been seen by Dr. Dexter Kee of cardiology in the chest pain center. Discussed the patient with her school psychologist Dr. Mathew. Patient will undergo a Lexiscan. She will be discharged home if her stress test is nonischemic with instructions to follow-up with her school psychologist and her primary care physician. Return to ED for interval issues. * Hypertension: Continue medications. * Hyperlipidemia: Continue medication. * Diabetes: Patient will be on sliding scale insulin coverage while in chest pain center. Resume medication at discharge. She should follow diabetic diet. * Obesity: Patient counseled on importance of diet, exercise, and weight loss.
[2018-05-30] MEDS ORDERED: Regadenoson Inj 0.4 MG/5 ML Syringe IV.PUSH ONE (10:28)
--- NOTE | 2018-05-30 11:57 | NM ---
EXAM DATE: 05/30/2018 11:33 AM EDT AGE/SEX: 57 years / Female INDICATIONS:Angina. . Left sided chest pain for one day. CLINICAL DATA: This is the patient's initial encounter. Patient reports that signs and symptoms have been present for 1 day and indicates a pain score of 5/10. MEDICAL/SURGICAL HISTORY: Congestive heart failure. Hypertension. Diabetes mellitus type II. Umbilical hernia repair. COMPARISON: No prior exams available for comparison. No external comparison. DOSE: 11 mCi Tc 99m Myoview at rest 35 mCi [id number] at stress 0.4 mg Lexiscan STRESS SYMPTOMS: Short of breath. EJECTION FRACTION: 63 % TECHNIQUE: The patient underwent pharmacologic stress with infusion of prescribed dose. Continuous ECG tracing was monitored during stress. Gated SPECT imaging was performed after stress and conventi onal SPECT imaging was performed at rest. The examination was performed on a SPECT/CT scanner, both attenuation and non-corrected datasets were reviewed. FINDINGS: Distribution: The maximum perfused segment at stress is in the septal wall. Perfusion Study: The pattern of perfusion at stress is within normal limits. Gated Study: There are intact wall motion and wall thickening without hypokinetic or dyskinetic segm ents. The ejection fraction is calculated at 63%. RISK CATEGORY: Low (<1% Annual Motality Rate) CONCLUSION: Unremarkable myocardial perfusion scan. Electronically signed by: Dexter Myers MD 05/30/2018 11:55 AM EDT
[2018-05-30] MEDS ORDERED: Insulin NovoLIN Regular Correctional Sugar Inj SQ SCH (12:00)
--- NOTE | 2018-06-04 17:46 | TR ---
Date Performed: 05/30/2018 Time Performed: 10:29:12 DOCTOR: Dexter Kee DRUG LIST: CLINICAL HISTORY: REASON FOR TEST: REASON FOR ENDING: OBSERVATION: CONCLUSION: COMMENTS: Lexiscan stress test was performed under standard four minute protocol. Radionuclide was injected one minute prior to ending the test. No electrocardiographic abormalities were present t o suggest ischemia. Nuclear imaging and interpretation are pending.
== END 2018-05-30 14:40 | disposition home or self-care (01) ==
LOC: NEPHCDU 18:42 → NEDA 18:42 → NEPD 18:42 → NEPHCDU 05-30 09:40
PROVIDERS: ADMIT Internal Medicine Cardiovascular Disease; ATTEND Internal Medicine Cardiovascular Disease